=== PATIENT | male | born 1945 | race Caucasian/White ===

== ENCOUNTER → 2016-04-24 | Outpatient (CLI) | payer MEDICARE, OTHER | LOC: GMAL 14:54 | PROVIDERS: ATTEND Family Medicine | DX: E03.8 Other specified hypothyroidism (principal) ==

== ENCOUNTER 2016-06-29 23:38 | Emergency (ER) | payer MEDICARE, OTHER ==
[2016-06-29] MEDS ORDERED: IPRATROPIUM/ALBUTEROL 3 ML VIAL NEB ONE (23:54)
[2016-06-30 00:02] VITALS: TEMP 97.6
[2016-06-30] MEDS ORDERED: NITROGLYCERIN 0.4 MG 25 EA TAB SL ONE (00:03)
[2016-06-30] MEDS ORDERED: ASPIRIN TABLET 325 MG TAB PO ONE (00:03)
[2016-06-30] MEDS ORDERED: ONDANSETRON INJ 4 MG/2 ML VIAL IV ONE (00:03)
[2016-06-30] MEDS ORDERED: SODIUM CHLORIDE 0.9% (FLUSH) 10 ML SYG IV PRN (00:03)
[2016-06-30] MEDS ORDERED: IPRATROPIUM/ALBUTEROL 3 ML VIAL NEB ONE (00:05)
--- NOTE | 2016-06-30 00:23 | ED.PDOC ---
History of Present Illness - General Chief Complaint: Chest Pain/AR Stated Complaint: chest pain,shortness of breath Time Seen by Provider: 06/30/16 00:02 Source: patient, RN notes reviewed, Vital Signs reviewed Exam Limitations: no limitations - History of Present Illness Initial Comments: Patient is a 70 y/o male with a history of 2 MIs who woke up with chest pain about 2300. The pain was a pressure and a 10/10. He has shortness of breath. He denies any dizziness, nausea, palpitations, or diaphoresis. He has HTN, DM treated with insulin, CKD and CAD. He smokes about 1.5 PPD. He states that his blood pressure and diabetes are under good control. He sees his doctor about every 2 weeks. He has nitroglycerine, but did not take any. He has had chest congestion and cough over the past month which seems to be worsening. Of note, Patient takes pseudoephedrine daily for his nasal congestion. Timing/Duration: 1 hour Severity: severe Improving Factors: nothing Worsening Factors: nothing Associated Symptoms: chest pain, shortness of breath Allergies/Adverse Reactions: Allergies NO KNOWN ALLERGY Allergy (Verified 03/22/16 16:50) Home Medications: Ambulatory Orders Tytrcozdhw-Faazyrgxz-Oeavaifuj [Exforge Hct 10-160-25 mg] 0.5 tab PO BEDTIME Aspirin [Baby Aspirin] 81 mg PO BEDTIME 03/30/14 Atorvastatin Calcium [Lipitor] 40 mg PO BEDTIME 03/30/14 Carvedilol 3.125 mg PO BID 03/30/14 Furosemide [Lasix] 20 mg PO DAILY 03/30/14 Gabapentin [Neurontin] 100 mg PO DAILY 03/30/14 Glipizide [Glucotrol Xl] 10 mg PO BEDTIME 03/30/14 Liraglutide [Victoza] 1.2 mg SC DAILY 03/30/14 Tamsulosin HCl 0.4 mg PO DAILY 03/30/14 Insulin Glargine [Toujeo Solostar] 34 unit SC DAILY 03/22/16 Acetaminophen [Tylenol] 500 mg PO DAILY 06/30/16 Clopidogrel Bisulfate [Plavix] 75 mg PO QD 06/30/16 Docusate Sodium [Colace Cap] 100 mg PO BID 06/30/16 Gabapentin 300 mg PO BEDTIME 06/30/16 Levothyroxine Sodium 50 mcg PO DAILY 06/30/16 Pseudoephedrine HCl [Pseudoephedrine HCl ER] 180 mg PO BID 06/30/16 SITagliptin [Januvia] 50 mg PO DAILY 06/30/16 Valsartan [Diovan] 160 mg PO DAILY 06/30/16 Review of Systems - Review of Systems Constitutional: States: no symptoms reported EENTM: States: nose congestion Respiratory: States: cough, short of breath Cardiology: States: chest pain. Denies: palpitations Gastrointestinal/Abdominal: States: no symptoms reported. Denies: nausea Genitourinary: States: no symptoms reported Musculoskeletal: States: no symptoms reported Skin: States: no symptoms reported Neurological: States: no symptoms reported Endocrine: States: no symptoms reported Hematologic/Lymphatic: States: no symptoms reported Past Medical History (General) - Patient Medical History Hx Seizures: No Hx Stroke: No Hx Asthma: No Hx of COPD: No Hx Cardiac Disorders: Yes - hypercholesterolemia; PVD; [place] x 2 Hx Congestive Heart Failure: No Hx Pacemaker: No Hx Hypertension: Yes Hx Thyroid Disease: Yes Hx Diabetes: Yes Hx Renal Disease: Yes Hx Cancer: No Hx Hepatitis C: No Hx MRSA: No - Vaccination History Hx Influenza Vaccination: No Hx Pneumococcal Vaccination: Yes - Social History Hx Tobacco Use: Yes Hx Alcohol Use: No Hx Substance Use: No Hx Physical Abuse: No Hx Emotional Abuse: No Family Medical History - Family History Mother Family History: Unknown Living Status: Cause of : old age Father Family History: Unknown Living Status: Cause of : old age Physical Exam - Physical Exam General Appearance: Alert, Comfortable, No apparent distress Ears, Nose, Throat: hearing grossly normal, normal ENT inspection Respiratory: chest non-tender, lungs clear, normal breath sounds, no respiratory distress, no accessory muscle use Cardiovascular/Chest: regular rate, rhythm, no edema, no gallop, no murmur Gastrointestinal/Abdominal: normal bowel sounds, non tender, soft, no organomegaly Neurologic: alert, normal mood/affect, oriented x 3 Skin Exam: normal color, warm/dry Progress - Progress Progress: 06/30/16 01:30 By the time Patient was in a room, his chest pain had resolved. - Results/Orders Results/Orders: 06/29/16 06/29/16 06/30/16 23:50 23:58 00:00 Temperature 97.6 F Pulse Rate 78 Pulse Rate [ 61 Left Brachial] Respiratory 20 20 Rate Blood Pressure 158/72 [Left Arm] O2 Sat by Pulse 86 L 85 L 91 L Oximetry 06/30/16 06/30/16 00:14 01:03 Temperature Pulse Rate Pulse Rate [ 77 Left Brachial] Respiratory 20 20 Rate Blood Pressure 153/71 [Left Arm] O2 Sat by Pulse 94 L Oximetry 06/30/16 00:03 Telemetry .ONCE Sodium Chloride 0.9% (Flush) [Saline Flush Syringe] 10 ml IV PRN PRN EKG Stat Pulse Ox Stat 06/30/16 00:04 EKG Assessment ONCE Pulse Oximetry Assessment DAILY Laboratory Results WBC 8.1 K/mm3 (4.8-10.8) 06/29/16 23:55 RBC 4.43 M/mm3 (4.70-6.10) L 06/29/16 23:55 Hgb 12.8 gm/dL (14.0-18.0) L 06/29/16 23:55 Hct 37.9 % (42.0-52.0) L 06/29/16 23:55 MCV 85.4 fl (80.0-94.0) 06/29/16 23:55 MCH 28.8 pg (27.0-31.0) 06/29/16 23:55 MCHC 33.9 g/dL (33.0-37.0) 06/29/16 23:55 RDW 14.3 % (11.5-14.5) 06/29/16 23:55 Plt Count 204 K/mm3 (130-400) 06/29/16 23:55 MPV 8.6 fl (7.40-10.4) 06/29/16 23:55 Absolute Neuts (auto) 4.70 K/uL (1.8-6.8) 06/29/16 23:55 Absolute Lymphs (auto) 2.30 K/uL (1.0-3.4) 06/29/16 23:55 Absolute Monos (auto) 0.70 K/uL (0.2-0.8) 06/29/16 23:55 Absolute Eos (auto) 0.40 K/uL (0.0-0.4) 06/29/16 23:55 Absolute Basos (auto) 0.10 K/uL (0.0-0.1) 06/29/16 23:55 Neutrophils % 58.1 % (42.0-78.0) 06/29/16 23:55 Lymphocytes % 28.1 % (20.0-50.0) 06/29/16 23:55 Monocytes % 8.0 % (2.0-9.0) 06/29/16 23:55 Eosinophils % 5.0 % (1.0-5.0) 06/29/16 23:55 Basophils % 0.8 % (0.0-2.0) 06/29/16 23:55 PT 10.8 SECONDS (9.4-12.5) 06/29/16 23:55 INR 0.960 06/29/16 23:55 PTT (SP) 28.8 SECONDS (25.1-36.5) 06/29/16 23:55 D-Dimer, Quantitative 233 ng/mL (0-230) H* 06/29/16 23:55 Sodium 138 mmol/L (135-145) 06/29/16 23:55 Potassium 4.4 mmol/L (3.6-5.0) 06/29/16 23:55 Chloride 105 mmol/L (101-111) 06/29/16 23:55 Carbon Dioxide 27 mmol/L (21-31) 06/29/16 23:55 Anion Gap 10.4 (12-18) L 06/29/16 23:55 BUN 38 mg/dL (7-18) H 06/29/16 23:55 Creatinine 1.66 mg/dL (0.6-1.3) H 06/29/16 23:55 BUN/Creatinine Ratio 22.9 (10-20) H 06/29/16 23:55 Random Glucose 309 mg/dL (70-105) H 06/29/16 23:55 Serum Osmolality 296.4 mOsm/L (275-295) H 06/29/16 23:55 Calcium 9.3 mg/dL (8.4-10.2) 06/29/16 23:55 Magnesium 1.9 mg/dL (1.8-2.5) 06/29/16 23:55 Total Bilirubin 0.4 mg/dL (0.2-1.0) 06/29/16 23:55 Direct Bilirubin < 0.1 mg/dL (0-0.2) 06/29/16 23:55 Indirect Bilirubin 0.3 mg/dL (0.2-0.8) 06/29/16 23:55 AST 19 IU/L (10-42) 06/29/16 23:55 ALT 17 IU/L (10-60) 06/29/16 23:55 Alkaline Phosphatase 51 IU/L (42-121) 06/29/16 23:55 Creatine Kinase 229 IU/L (38-174) H* 06/29/16 23:55 CK-MB (CK-2) 7.2 ng/mL (0.0-4.4) H* 06/29/16 23:55 CK-MB (CK-2) % 3.14 % (0.0-3.5) 06/29/16 23:55 Troponin I 0.08 ng/mL (0.01-0.05) H* 06/29/16 23:55 B-Natriuretic Peptide 236.0 pg/ml (0-100) H* 06/29/16 23:55 Serum Total Protein 7.0 gm/dL (6.4-8.2) 06/29/16 23:55 Albumin 3.9 g/dl (3.2-5.5) 06/29/16 23:55 - EKG/XRAY/CT EKG: Sinus - 82 bpm, nonspecific ST T wave Chg - T-wave inversion in I, V5, V6, Changed from - 12/12/2014-No T-wave inversion, + PVCs Comments: NML axis, Normal intervals - Abnormal EKG XRAY: chest Xray Comments: No acute process Departure - Departure Clinical Impression: Non-STEMI (non-ST elevated myocardial infarction) DMII (diabetes mellitus, type 2) Qualifiers: Diabetes mellitus complication status: with kidney complications Diabetes mellitus complication detail: with chronic kidney disease Chronic kidney disease stage: stage 3 (moderate) Qualifier Code: (E11.22) Type 2 diabetes mellitus with diabetic chronic kidney disease Chronic kidney disease Qualifiers: Chronic kidney disease stage: stage 3 (moderate) Qualifier Code: (N18.3) Chronic kidney disease, stage 3 (moderate) Coronary artery disease Qualifiers: Coronary Disease-Associated Artery/Lesion type: unspecified vessel or lesion type [place] vs. 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 Copy, Patient Portal Self Enrollment Referrals: Matt Branch III, MD [Primary Care Provider] - 1-2 Weeks Home Medications: Ambulatory Orders Pijnlqomhx-Zxvihrrpl-Gdvuscmty [Exforge Hct 10-160-25 mg] 0.5 tab PO BEDTIME Aspirin [Baby Aspirin] 81 mg PO BEDTIME 03/30/14 Atorvastatin Calcium [Lipitor] 40 mg PO BEDTIME 03/30/14 Carvedilol 3.125 mg PO BID 03/30/14 Furosemide [Lasix] 20 mg PO DAILY 03/30/14 Gabapentin [Neurontin] 100 mg PO DAILY 03/30/14 Glipizide [Glucotrol Xl] 10 mg PO BEDTIME 03/30/14 Liraglutide [Victoza] 1.2 mg SC DAILY 03/30/14 Tamsulosin HCl 0.4 mg PO DAILY 03/30/14 Insulin Glargine [Toujeo Solostar] 34 unit SC DAILY 03/22/16 Acetaminophen [Tylenol] 500 mg PO DAILY 06/30/16 Clopidogrel Bisulfate [Plavix] 75 mg PO QD 06/30/16 Docusate Sodium [Colace Cap] 100 mg PO BID 06/30/16 Gabapentin 300 mg PO BEDTIME 06/30/16 Levothyroxine Sodium 50 mcg PO DAILY 06/30/16 Pseudoephedrine HCl [Pseudoephedrine HCl ER] 180 mg PO BID 06/30/16 SITagliptin [Januvia] 50 mg PO DAILY 06/30/16 Valsartan [Diovan] 160 mg PO DAILY 06/30/16 Transfer to Outside Facility - Transfer Information Accepting Provider:: Dr. Elsy Rothman Accepting Facility: [facility] Reason for Transfer: required specialist not available
--- NOTE | 2016-06-30 00:35 | RAD ---
Clinical History : chest pain , MAIN Exam : Portable AP view of the chest 06/30/2016 12:03 AM CDT Comparisons : PA and lateral views of the chest March 22, 2016 Findings : The lungs are clear without focal consolidation or pleural effusion. The heart is normal in size. The mediastinal contours are normal in appearance. There are vascular calcifications along the aortic arch. The thoracic spine is age appropriate. The shoulders are unremarkable. Limited evaluation of the upper abdomen demonstrates no gross abnormalities. Impression: No acute cardiopulmonary disease (stable appearing chest). Electronically signed by: Ivone Gilmore MD 06/30/2016 12:34 AM CDT
[2016-06-30] MEDS ORDERED: METOPROLOL TARTRATE INJ 5 MG/5 ML VIAL IV ONE ×3 (01:16→02:01)
[2016-06-30] MEDS ORDERED: HEPARIN PREMIX 500 ML IV SCH (01:22)
[2016-06-30] MEDS ORDERED: HEPARIN SODIUM (PORCINE) 5,000 U/ML VIAL IV ONE (01:27)
[2016-06-30 02:29] VITALS: BP 158/72; O2SAT 95
== END 2016-06-30 02:39 | disposition short-term general hospital (02) ==
LOC: ER 23:38
DX: I21.4 Non-ST elevation (NSTEMI) myocardial infarction (principal); E11.22 Type 2 diabetes mellitus with diabetic chronic kidney disease; I12.9 Hypertensive chronic kidney disease with stage 1 through stage 4 chronic kidney disease, or unspecified chronic kidney disease; N18.3 Chronic kidney disease, stage 3 (moderate); I25.10 Atherosclerotic heart disease of native coronary artery without angina pectoris; I25.2 Old myocardial infarction; E78.00 Pure hypercholesterolemia, unspecified; Z79.899 Other long term (current) drug therapy; Z79.82 Long term (current) use of aspirin; Z79.02 Long term (current) use of antithrombotics/antiplatelets; Z79.4 Long term (current) use of insulin; Z87.891 Personal history of nicotine dependence
CPT/HCPCS: 71010; 80048; 80076; 82550; 82553; 83880; 84484; 85025; 85379; 85610; 85730; 93005; 94640; 94760; J1644; J7620

== ENCOUNTER → 2016-07-23 | Outpatient (CLI) | payer MEDICARE, OTHER | END | disposition home or self-care (01) | LOC: GMAL 12:04 | PROVIDERS: ATTEND Family Medicine | DX: E55.9 Vitamin D deficiency, unspecified (principal); M10.9 Gout, unspecified ==

== ENCOUNTER → 2016-07-24 | Outpatient (CLI) | payer MEDICARE, OTHER | LOC: GMAL 10:38 | PROVIDERS: ATTEND Family Medicine | DX: R39.15 Urgency of urination (principal) ==

== ENCOUNTER → 2016-07-30 | Outpatient (CLI) | payer MEDICARE, OTHER | END | disposition home or self-care (01) | LOC: GMAL 10:14 | PROVIDERS: ATTEND Family Medicine | DX: I50.9 Heart failure, unspecified (principal); R31.9 Hematuria, unspecified ==

== ENCOUNTER → 2016-08-01 | Outpatient (CLI) | payer MEDICARE, OTHER | LOC: LAB.O 16:43 | PROVIDERS: ATTEND Family Medicine | DX: I10 Essential (primary) hypertension (principal); I50.9 Heart failure, unspecified ==

== ENCOUNTER → 2016-11-13 | Outpatient (CLI) | payer MEDICARE, OTHER | END | disposition home or self-care (01) | LOC: GMAL 11:43 | PROVIDERS: ATTEND Family Medicine | DX: R31.0 Gross hematuria (principal) ==

== ENCOUNTER → 2016-11-19 | Outpatient (CLI) | payer MEDICARE, OTHER | END | disposition home or self-care (01) | LOC: GMAL 10:58 | PROVIDERS: ATTEND Family Medicine | DX: D51.3 Other dietary vitamin B12 deficiency anemia (principal); D53.9 Nutritional anemia, unspecified; E55.9 Vitamin D deficiency, unspecified ==

== ENCOUNTER 2016-12-18 20:14 | Emergency (ER) | payer MEDICARE, OTHER ==
[2016-12-18 20:28] VITALS: TEMP 98
--- NOTE | 2016-12-18 21:56 | ED.PDOC ---
History of Present Illness - General Chief Complaint: Blood Pressure Problem Stated Complaint: high B/P Time Seen by Provider: 12/18/16 20:14 Source: patient Exam Limitations: no limitations - History of Present Illness Initial Comments: the patient is a 71-year-old male brought in with his secondary to concern over his elevated blood pressure and the fact that he had had 2 previous almost silent myocardial infarctions in the past. He does have some known chronic renal insufficiency and recently had his blood pressure medications and diuretic reduced. The patient has noted some increased swelling in his extremities as well as some increased dyspnea on exertion. No orthopnea or paroxysmal nocturnal dyspnea. No fevers. No chest pain. No shortness of breath at rest. He also noted today that his blood pressures were climbing up higher than they normally work. His recent medication changes were done approximately one to 2 weeks ago. He had been having some mildly low blood pressures which was also the reason for change. Timing/Duration: unsure Severity: mild Improving Factors: nothing Worsening Factors: nothing Associated Symptoms: denies symptoms Allergies/Adverse Reactions: Allergies NO KNOWN ALLERGY Allergy (Verified 12/18/16 20:28) Home Medications: Ambulatory Orders Vezaetgugl-Migotptgt-Daewefcvz [Exforge Hct 10-160-25 mg] 0.5 tab PO BEDTIME Aspirin [Baby Aspirin] 81 mg PO BEDTIME 03/30/14 Atorvastatin Calcium [Lipitor] 40 mg PO BEDTIME 03/30/14 Carvedilol 3.125 mg PO BID 03/30/14 Furosemide [Lasix] 20 mg PO DAILY 03/30/14 Gabapentin [Neurontin] 100 mg PO DAILY 03/30/14 Glipizide [Glucotrol Xl] 10 mg PO BEDTIME 03/30/14 Liraglutide [Victoza] 1.2 mg SC DAILY 03/30/14 Tamsulosin HCl 0.4 mg PO DAILY 03/30/14 Insulin Glargine [Toujeo Solostar] 34 unit SC DAILY 03/22/16 Acetaminophen [Tylenol] 500 mg PO DAILY 06/30/16 Clopidogrel Bisulfate [Plavix] 75 mg PO QD 06/30/16 Docusate Sodium [Colace Cap] 100 mg PO BID 06/30/16 Gabapentin 300 mg PO BEDTIME 06/30/16 Levothyroxine Sodium 50 mcg PO DAILY 06/30/16 Pseudoephedrine HCl [Pseudoephedrine HCl ER] 180 mg PO BID 06/30/16 SITagliptin [Januvia] 50 mg PO DAILY 06/30/16 Valsartan [Diovan] 160 mg PO DAILY 06/30/16 Review of Systems - Review of Systems Constitutional: States: malaise EENTM: States: no symptoms reported Respiratory: States: no symptoms reported Cardiology: States: edema Gastrointestinal/Abdominal: States: no symptoms reported Genitourinary: States: no symptoms reported Musculoskeletal: States: no symptoms reported Skin: States: no symptoms reported Neurological: States: no symptoms reported Endocrine: States: no symptoms reported All other Systems: No Change from Baseline Past Medical History (General) - Patient Medical History Hx Seizures: No Hx Stroke: No Hx Dementia: No Hx Asthma: No Hx of COPD: No Hx Cardiac Disorders: Yes - hypercholesterolemia; PVD; [place] x 2 Hx Congestive Heart Failure: No Hx Pacemaker: No Hx Hypertension: Yes Hx Thyroid Disease: Yes Hx Diabetes: Yes Hx Gastroesophageal Reflux: No Hx Renal Disease: No Hx Cancer: No Hx of HIV: No Hx Hepatitis C: No Hx MRSA: No - Vaccination History Hx Tetanus, Diphtheria Vaccination: Yes Hx Influenza Vaccination: No Hx Pneumococcal Vaccination: Yes - Social History Hx Tobacco Use: Yes Hx Chewing Tobacco Use: No Hx Alcohol Use: No Hx Substance Use: No Feels Threatened In Home Enviroment: No Feels Threatened In a Relationship: No Hx Physical Abuse: No Hx Emotional Abuse: No Hx Suspected Abuse: No Family Medical History - Family History Mother Family History: Unknown Living Status: Cause of : old age Father Family History: Unknown Living Status: Cause of : old age Physical Exam - Physical Exam General Appearance: Alert, Comfortable, No apparent distress Eye Exam: bilateral normal Ears, Nose, Throat: hearing grossly normal, normal ENT inspection, normal pharynx Neck: non-tender, full range of motion Respiratory: lungs clear, normal breath sounds, no respiratory distress, no accessory muscle use Cardiovascular/Chest: normal peripheral pulses, regular rate, rhythm Peripheral Pulses: radial,right: 2+, radial,left: 2+, dorsalis pedis,right: 2+, dorsalis pedis,left: 2+ Gastrointestinal/Abdominal: non tender, soft Rectal Exam: deferred Back Exam: normal inspection Extremity: normal range of motion, non-tender, normal capillary refill, pedal edema - +1 bilaterally Neurologic: travel registered nurse icu II-XII nml as tested, alert, normal mood/affect, oriented x 3 Skin Exam: normal color Comments: Vital Signs - 24 hr 12/18/16 12/18/16 20:20 21:14 Temperature 98.0 F Pulse Rate [ 80 77 monitor] Respiratory 18 Rate Blood Pressure 161/78 182/75 [Left Arm] O2 Sat by Pulse 94 L Oximetry Progress - Progress Progress: 12/18/16 21:56 the patient is a 71-year-old male presenting secondary to concern over his elevated blood pressure. He does appear to be having a very mild CHF exacerbation likely related to recent changes in his blood pressure and diuretic medications. He is to double up on his diuretic tomorrow and Friday. He needs to discuss with his primary care doctor possibly inching back up his blood pressure medications. His creatinine has improved from the last check here. There is no elevation in his troponin. He does need to follow his blood pressures closely over the next week to make sure that the level back out. ER warnings are given for any significant worsening. - Results/Orders Results/Orders: Laboratory Tests 12/18/16 12/18/16 20:48 20:48 WBC 8.5 RBC 4.09 L Hgb 12.0 L Hct 34.8 L MCV 85.1 MCH 29.3 MCHC 34.5 RDW 14.1 Plt Count 198 MPV 8.0 Absolute Neuts (auto) 5.50 Absolute Lymphs (auto) 1.80 Absolute Monos (auto) 0.60 Absolute Eos (auto) 0.50 H Absolute Basos (auto) 0.10 Neutrophils % 64.5 Lymphocytes % 20.8 Monocytes % 7.6 Eosinophils % 6.1 H Basophils % 1.0 Sodium 135 Potassium 4.6 Chloride 103 Carbon Dioxide 25 Anion Gap 11.6 L BUN 37 H Creatinine 1.62 H BUN/Creatinine Ratio 22.8 H Random Glucose 199 H Serum Osmolality 284.4 Calcium 9.5 Total Bilirubin 0.5 AST 22 ALT 17 Alkaline Phosphatase 53 Creatine Kinase 220 H* CK-MB (CK-2) 6.7 H* CK-MB (CK-2) % 3.05 Troponin I 0.05 B-Natriuretic Peptide 401.0 H* Serum Total Protein 7.4 Albumin 4.1 Globulin 3.3 Albumin/Globulin Ratio 1.2 Departure - Departure Clinical Impression: Uncontrolled hypertension Acute exacerbation of CHF (congestive heart failure) Qualifiers: Congestive heart failure type: unspecified congestive heart failure type Qualified Code(s): I50.9 - Heart failure, unspecified Disposition: Discharge to Home or Self Care Condition: Fair Departure Forms: ED Discharge - Pt. Copy, Patient Portal Self Enrollment Instructions: DI for High Blood Pressure Diet: diabetic diet, low salt diet Activity: increase activity as tolerated Referrals: Matt Branch III, MD [Primary Care Provider] - 1-5 Days Home Medications: Ambulatory Orders Nmtrymilpo-Zejvdqjxd-Otljmfsdi [Exforge Hct 10-160-25 mg] 0.5 tab PO BEDTIME Aspirin [Baby Aspirin] 81 mg PO BEDTIME 03/30/14 Atorvastatin Calcium [Lipitor] 40 mg PO BEDTIME 03/30/14 Carvedilol 3.125 mg PO BID 03/30/14 Furosemide [Lasix] 20 mg PO DAILY 03/30/14 Gabapentin [Neurontin] 100 mg PO DAILY 03/30/14 Glipizide [Glucotrol Xl] 10 mg PO BEDTIME 03/30/14 Liraglutide [Victoza] 1.2 mg SC DAILY 03/30/14 Tamsulosin HCl 0.4 mg PO DAILY 03/30/14 Insulin Glargine [Toujeo Solostar] 34 unit SC DAILY 03/22/16 Acetaminophen [Tylenol] 500 mg PO DAILY 06/30/16 Clopidogrel Bisulfate [Plavix] 75 mg PO QD 06/30/16 Docusate Sodium [Colace Cap] 100 mg PO BID 06/30/16 Gabapentin 300 mg PO BEDTIME 06/30/16 Levothyroxine Sodium 50 mcg PO DAILY 06/30/16 Pseudoephedrine HCl [Pseudoephedrine HCl ER] 180 mg PO BID 06/30/16 SITagliptin [Januvia] 50 mg PO DAILY 06/30/16 Valsartan [Diovan] 160 mg PO DAILY 06/30/16 Additional Instructions: the patient is a 71-year-old male presenting secondary to concern over his elevated blood pressure. He does appear to be having a very mild CHF exacerbation likely related to recent changes in his blood pressure and diuretic medications. He is to double up on his diuretic tomorrow and Friday. He needs to discuss with his primary care doctor possibly inching back up his blood pressure medications. His creatinine has improved from the last check here. There is no elevation in his troponin. He does need to follow his blood pressures closely over the next week to make sure that the level back out. ER warnings are given for any significant worsening.
[2016-12-18 22:18] VITALS: BP 190/80; O2SAT 92
== END 2016-12-18 22:18 | disposition home or self-care (01) ==
LOC: ER 20:14
DX: I11.0 Hypertensive heart disease with heart failure (principal); I50.9 Heart failure, unspecified; E78.00 Pure hypercholesterolemia, unspecified; I25.2 Old myocardial infarction; Z79.4 Long term (current) use of insulin; Z79.899 Other long term (current) drug therapy; Z79.02 Long term (current) use of antithrombotics/antiplatelets; Z79.82 Long term (current) use of aspirin

== ENCOUNTER → 2016-12-25 | Outpatient (CLI) | payer MEDICARE, OTHER | END | disposition home or self-care (01) | LOC: GMAL 15:20 | PROVIDERS: ATTEND Family Medicine | DX: E83.42 Hypomagnesemia (principal) ==

== ENCOUNTER 2017-01-26 07:05 | Emergency (ER) | payer MEDICARE, OTHER ==
--- NOTE | 2017-01-26 07:32 | ED.PDOC ---
History of Present Illness - General Chief Complaint: General Stated Complaint: Difficulty swallowing pills Time Seen by Provider: 01/26/17 07:20 Source: patient, RN notes reviewed, Vital Signs reviewed, family - Exam Limitations: no limitations - History of Present Illness Initial Comments: Patient comes to ER with c/o difficulty swallowing intermittently for the past 2 weeks. Initially started with the feeling of his throat swelling about 4 days after starting a new diabetic medication. His doctor had him stop the medication and things seemed to improved. He noted 2 nights ago he had difficulty swallowing his evening pills. Same symptoms last night. Denies difficulty swallowing food or liquids, just his medication. + Hx of reflux X ~ 15 years. Takes Rolaids but has never been seen for this nor has he had an EGD. Timing/Duration: intermittent Severity: moderate Improving Factors: nothing Worsening Factors: other - swallowing medications. Associated Symptoms: denies symptoms Allergies/Adverse Reactions: Allergies NO KNOWN ALLERGY Allergy (Verified 01/26/17 07:26) Home Medications: Ambulatory Orders Aspirin [Baby Aspirin] 81 mg PO BEDTIME 03/30/14 Carvedilol 3.125 mg PO BID 03/30/14 Furosemide [Lasix] 40 mg PO DAILY 03/30/14 Gabapentin [Neurontin] 300 mg PO DAILY 03/30/14 Liraglutide [Victoza] 1.2 mg SC DAILY 03/30/14 Tamsulosin HCl 0.4 mg PO DAILY 03/30/14 Acetaminophen [Tylenol] 500 mg PO DAILY 06/30/16 Clopidogrel Bisulfate [Plavix] 75 mg PO QD 06/30/16 Docusate Sodium [Colace Cap] 100 mg PO BID 06/30/16 Gabapentin 900 mg PO BEDTIME 06/30/16 Pseudoephedrine HCl [Pseudoephedrine HCl ER] 180 mg PO BID 06/30/16 Allopurinol [Zyloprim] 100 mg PO DAILY 01/26/17 Qxkyjczlld-Fenhqlgpg-Ussigcdha [Exforge Hct 5-160-25 mg] 1 tab PO BID 01/26/17 Insulin Regular (Human) [Humulin R] 0 unit IJ QID PRN 01/26/17 Linaclotide [Linzess] 145 mcg PO DAILY PRN 01/26/17 Pantoprazole Tablet [Protonix] 40 mg PO BID #60 tab 01/26/17 Review of Systems - Review of Systems Constitutional: States: no symptoms reported EENTM: States: no symptoms reported Respiratory: States: cough, wheezing - noticed last night while he could not sleep. Denies: short of breath Cardiology: States: no symptoms reported Gastrointestinal/Abdominal: States: see HPI. Denies: abdominal pain, nausea, vomiting Musculoskeletal: States: no symptoms reported Skin: States: no symptoms reported Neurological: States: no symptoms reported All other Systems: No Change from Baseline Past Medical History (General) - Patient Medical History Hx Seizures: No Hx Stroke: No Hx Dementia: No Hx Asthma: No Hx of COPD: No Hx Cardiac Disorders: Yes - hypercholesterolemia; PVD; SD x 2 Hx Congestive Heart Failure: Yes Hx Pacemaker: No Hx Hypertension: Yes Hx Thyroid Disease: Yes Hx Diabetes: Yes Hx Gastroesophageal Reflux: No Hx Renal Disease: No Hx Cancer: No Hx of HIV: No Hx Hepatitis C: No Hx MRSA: No Surgical History: tonsillectomy, other - Vaccination History Hx Tetanus, Diphtheria Vaccination: Yes Hx Influenza Vaccination: No Hx Pneumococcal Vaccination: Yes - 2017 - Social History Hx Tobacco Use: Yes Hx Chewing Tobacco Use: No Hx Alcohol Use: No Hx Substance Use: No Hx Physical Abuse: No Hx Emotional Abuse: No Hx Suspected Abuse: No Family Medical History - Family History Mother Family History: Unknown Living Status: Cause of : old age Father Family History: Unknown Living Status: Cause of : old age Physical Exam - Physical Exam General Appearance: Alert, Comfortable, No apparent distress, Well Developed, Well Groomed, Well Hydrated, Well Nourished Ears, Nose, Throat: hearing grossly normal Neck: non-tender, supple, normal inspection Respiratory: lungs clear, normal breath sounds, no respiratory distress, no accessory muscle use Cardiovascular/Chest: regular rate, rhythm, no gallop, no JVD, no murmur Extremity: normal range of motion, normal inspection Neurologic: alert, normal mood/affect, oriented x 3 Skin Exam: normal color, warm/dry Comments: Vital Signs 01/26/17 07:11 Temperature 97.6 F Pulse Rate [ 83 Left Radial] Respiratory 20 Rate Blood Pressure 183/80 [Left Arm] O2 Sat by Pulse 97 Oximetry Progress - Progress Progress: 01/26/17 08:16 Discussed X-ray results with patient and . Symptoms most likely related to chronic reflux. Will start Protonix 40mg twice daily and have his follow up with [facility] for and EGD Advised no caffeine, carbonated drinks, citrus, alcohol or chocolate Also, sleep with head slightly elevated. - EKG/XRAY/CT XRAY: Neck: no obstruction other than large tongue per Radiologist - No acute findings per Radiologist Departure - Departure Clinical Impression: Gastroesophageal reflux Qualifiers: Esophagitis presence: esophagitis presence not specified Qualified Code(s): K21.9 - Gastro-esophageal reflux disease without esophagitis Dysphagia Qualifiers: Dysphagia type: pharyngoesophageal phase Qualified Code(s): R13.14 - Dysphagia , pharyngoesophageal phase Time of Disposition: 08:19 Disposition: Discharge to Home or Self Care Condition: Good Departure Forms: ED Discharge - Pt. Copy, Patient Portal Self Enrollment Instructions: DI for Esophageal Dysphagia, DI for Gastroesophageal Reflux Disease (GERD) Diet: resume usual diet - except with limitations listed below Activity: increase activity as tolerated Referrals: Matt Branch III, MD [Primary Care Provider] - 1-2 Weeks Tim Peters MD [Consulting Staff] - 1-2 Weeks Prescriptions: Pantoprazole Tablet [Protonix] 40 mg PO BID #60 tab Home Medications: Ambulatory Orders Aspirin [Baby Aspirin] 81 mg PO BEDTIME 03/30/14 Carvedilol 3.125 mg PO BID 03/30/14 Furosemide [Lasix] 40 mg PO DAILY 03/30/14 Gabapentin [Neurontin] 300 mg PO DAILY 03/30/14 Liraglutide [Victoza] 1.2 mg SC DAILY 03/30/14 Tamsulosin HCl 0.4 mg PO DAILY 03/30/14 Acetaminophen [Tylenol] 500 mg PO DAILY 06/30/16 Clopidogrel Bisulfate [Plavix] 75 mg PO QD 06/30/16 Docusate Sodium [Colace Cap] 100 mg PO BID 06/30/16 Gabapentin 900 mg PO BEDTIME 06/30/16 Pseudoephedrine HCl [Pseudoephedrine HCl ER] 180 mg PO BID 06/30/16 Allopurinol [Zyloprim] 100 mg PO DAILY 01/26/17 Vnkhonlgis-Rbzwzcsre-Wmknozdzx [Exforge Hct 5-160-25 mg] 1 tab PO BID 01/26/17 Insulin Regular (Human) [Humulin R] 0 unit IJ QID PRN 01/26/17 Linaclotide [Linzess] 145 mcg PO DAILY PRN 01/26/17 Pantoprazole Tablet [Protonix] 40 mg PO BID #60 tab 01/26/17 Additional Instructions: Will start Protonix 40mg twice daily and have his follow up with [facility] for and EGD Advised no caffeine, carbonated drinks, citrus, alcohol or chocolate Also, sleep with head slightly elevated.
[2017-01-26 07:36] VITALS: TEMP 97.6
--- NOTE | 2017-01-26 08:04 | RAD ---
Clinical History : difficulty swallowing , MAIN Exam : PA and lateral views of the chest 01/26/2017 7:27 AM CDT Comparisons : none Findings : The lungs are clear without focal consolidation or pleural effusion. The heart is normal in size. The mediastinal contours are normal in appearance. There are vascular calcifications along the aortic arch. The thoracic spine is age appropriate. The shoulders are unremarkable. Limited evaluation of the upper abdomen demonstrates no gross abnormalities. Impression: No acute cardiopulmonary disease Electronically signed by: Ivone Gilmore MD 01/26/2017 8:02 AM CDT
--- NOTE | 2017-01-26 08:11 | RAD ---
EXAM DESCRIPTION: Neck,Soft Tissue CLINICAL HISTORY: 71 years, Male, difficulty swallowing COMPARISON: Chest x-ray from today FINDINGS: Two views of the neck soft tissues were performed. The nasal canal and nasopharynx are patent. The oropharynx is patent but there is some mass effect anteriorly from a large tongue. Patent vallecula and piriform sinuses. Unremarkable epiglottis. Unremarkable larynx and upper trachea. There is no prevertebral soft tissue swelling. Degenerative changes involve the cervical spine are associated with minimal listheses. There has been previous fusion of C7-T1. No suspicious radiopaque foreign body is identified. Some LEFT neck calcification is likely vascular in etiology. IMPRESSION: Patent central airway with mass effect on the anterior oropharynx from a large tongue. No radiopaque foreign body. Electronically signed by: Glenys Sharif MD 01/26/2017 8:10 AM CDT
[2017-01-26] MEDS ORDERED: PANTOPRAZOLE SODIUM TAB 40 MG PO ONE (08:15)
[2017-01-26 08:24] VITALS: BP 175/82; O2SAT 98
== END 2017-01-26 08:29 | disposition home or self-care (01) ==
LOC: ER 07:05
DX: K21.9 Gastro-esophageal reflux disease without esophagitis (principal); R13.14 Dysphagia, pharyngoesophageal phase; Z87.891 Personal history of nicotine dependence; E78.00 Pure hypercholesterolemia, unspecified; I25.2 Old myocardial infarction; I11.0 Hypertensive heart disease with heart failure; I50.9 Heart failure, unspecified; E11.9 Type 2 diabetes mellitus without complications; Z79.02 Long term (current) use of antithrombotics/antiplatelets; Z79.4 Long term (current) use of insulin; Z79.899 Other long term (current) drug therapy

== ENCOUNTER → 2017-02-05 | Outpatient (CLI) | payer MEDICARE, OTHER ==
--- NOTE | 2017-02-06 08:05 | US ---
EXAM DESCRIPTION: Extremity,Upper [place] Arteries: ULTRASOUND. CLINICAL HISTORY: ATHEROSCLEROSIS OF [place] ARTERIES OF EXTREMITIES COMPARISON: None Available. TECHNIQUE: Two -dimensional and doppler sonographic evaluation of the arterial system of the bilateral upper 70s. FINDINGS: Right upper extremity arterial waveforms: Triphasic in the right subclavian artery. Biphasic in the right axillary artery brachial artery and radial and ulnar arteries. Left upper extremity arterial waveforms: Biphasic from the left subclavian artery to the left ulnar artery. Comments: Peak systolic velocities are symmetric bilaterally. IMPRESSION: Duplex ultrasound evaluation of the bilateral upper extremity arterial systems showing no evidence of significant atherosclerotic occlusive disease . Electronically signed by: Bert Cruz MD 02/06/2017 8:04 AM CDT
--- NOTE | 2017-02-06 08:22 | US ---
EXAM DESCRIPTION: Renal Arteries: ULTRASOUND. CLINICAL HISTORY: ESSENTIAL PRIMARY HYPERTENSION COMPARISON: Doppler ultrasound of the bilateral upper extremity arterial systems on the same visit. TECHNIQUE: Transcutaneous scanning: Two-dimensional modes. Doppler systolic and diastolic measurements of the abdominal aorta, renal arteries, intra renal arteries, and renal veins. FINDINGS: PSV (cm/sec): Aorta: 80.0 Right renal artery: 104.8 Left renal artery: 60.9 EDV (cm/sec): Right renal artery: Approximately 15. Left renal artery: Approximately 15. Renal veins: Utilized. IVC: Visualized. Intrarenal RI's: Not measured. Renal Aortic Ratio: Right RAR = RRA PSV/Aortic PSV = 104.8 /80= 1.3. Left RAR = LRA PSV/Aortic PSV = 60.9/80 = 0.8. End Diastolic Ratio: Right EDR = RRA EDV/RRA PSV = 15/104.8 = 0.14. Left EDR = LRA EDV/LRA PSV = 15/61= 0.245. Other: Bilateral renal cortices appear slightly echogenic. IMPRESSION: 1. Bilateral renal aortic ratios indicate no significant stenosis of the renal arteries. 2. Bilateral end diastolic ratios indicate significant bilateral renal vascular parenchymal disease. Note: RI values were not measured. Electronically signed by: Bert Cruz MD 02/06/2017 8:21 AM CDT
== END | disposition home or self-care (01) ==
LOC: US 09:29
PROVIDERS: ATTEND Family Medicine
DX: I70.209 Unspecified atherosclerosis of native arteries of extremities, unspecified extremity (principal); I10 Essential (primary) hypertension

== ENCOUNTER 2017-02-09 22:36 | Emergency (ER) | payer MEDICARE, OTHER ==
[2017-02-09 22:53] VITALS: TEMP 97.2
[2017-02-09] MEDS ORDERED: ALBUTEROL SULFATE 2.5 MG/3 ML VIAL NEB ONE (22:53)
--- NOTE | 2017-02-09 22:56 | RAD ---
Examination: XR CHEST 1 VIEW dated 02/09/2017 10:44 PM CDT History: Chest pain/SOB Comparison: 01/26/2017 Technique: Frontal view of the chest Findings: Patchy bilateral lobe airspace opacities. No pneumothorax or pleural effusion. Aortic atherosclerosis. Normal cardiac silhouette. Impression: Patchy bilateral lower lobe airspace opacities may be seen with pneumonia, aspiration, or atelectasis. Electronically signed by: Cristobal Moe MD 02/09/2017 10:54 PM CDT
--- NOTE | 2017-02-09 22:56 | ED.PDOC ---
History of Present Illness - General Chief Complaint: Respiratory Problem Stated Complaint: SOB Time Seen by Provider: 02/09/17 22:37 Source: patient, RN notes reviewed, Vital Signs reviewed Exam Limitations: no limitations - History of Present Illness Initial Comments: Patient reports ~30 minutes prior to arrival he developed some chest pain and SOB. Reports he got up from the recliner to go to the bathroom. His L arm started hurting and while in bathroom he developed a pain between his shoulder blades. He made it back to the recliner but became progressively more SOB and developed some chest heaviness. He took SLNTG X2 on the way to ER and is chest pain free but still very SOB. Timing/Duration: 1/2 hour Severity: severe Activities at Onset: activity - Up walking to restroom Possible Cause: occasional episodes - LA X2 in past Improving Factors: nothing Worsening Factors: nothing Associated Symptoms: chest pain Respiratory Risk Factors: no cause identified Allergies/Adverse Reactions: Allergies NO KNOWN ALLERGY Allergy (Verified 02/09/17 22:53) Home Medications: Ambulatory Orders Aspirin [Baby Aspirin] 81 mg PO BEDTIME 03/30/14 Carvedilol 3.125 mg PO BID 03/30/14 Furosemide [Lasix] 40 mg PO DAILY 03/30/14 Gabapentin [Neurontin] 300 mg PO DAILY 03/30/14 Liraglutide [Victoza] 1.2 mg SC DAILY 03/30/14 Tamsulosin HCl 0.4 mg PO DAILY 03/30/14 Acetaminophen [Tylenol] 500 mg PO DAILY 06/30/16 Clopidogrel Bisulfate [Plavix] 75 mg PO QD 06/30/16 Docusate Sodium [Colace Cap] 100 mg PO BID 06/30/16 Gabapentin 900 mg PO BEDTIME 06/30/16 Pseudoephedrine HCl [Pseudoephedrine HCl ER] 180 mg PO BID 06/30/16 Allopurinol [Zyloprim] 100 mg PO DAILY 01/26/17 Wsgjukljbi-Kzdidtcvi-Sfoxelsnr [Exforge Hct 5-160-25 mg] 1 tab PO BID 01/26/17 Insulin Regular (Human) [Humulin R] 0 unit IJ QID PRN 01/26/17 Linaclotide [Linzess] 145 mcg PO DAILY PRN 01/26/17 Pantoprazole Tablet [Protonix] 40 mg PO BID #60 tab 01/26/17 Pantoprazole Tablet [Protonix] 40 mg PO BID #60 tab 01/26/17 Review of Systems - Review of Systems Constitutional: States: no symptoms reported. Denies: chills, diaphoresis, fever, malaise Respiratory: States: short of breath. Denies: cough Cardiology: States: chest pain - Resolved prior to arrival @ ER, syncope. Denies: palpitations Gastrointestinal/Abdominal: States: no symptoms reported Musculoskeletal: States: back pain Skin: States: no symptoms reported Neurological: States: no symptoms reported All other Systems: No Change from Baseline Past Medical History (General) - Patient Medical History Hx Seizures: No Hx Stroke: No Hx Dementia: No Hx Asthma: No Hx of COPD: No Hx Cardiac Disorders: Yes - hypercholesterolemia; PVD; LA x 2 Hx Congestive Heart Failure: Yes Hx Pacemaker: No Hx Hypertension: Yes Hx Thyroid Disease: Yes Hx Diabetes: Yes Hx Gastroesophageal Reflux: No Hx Renal Disease: No Hx Cancer: No Hx of HIV: No Hx Hepatitis C: No Hx MRSA: No Surgical History: other - Vaccination History Hx Tetanus, Diphtheria Vaccination: Yes Hx Influenza Vaccination: No Hx Pneumococcal Vaccination: Yes - Social History Hx Tobacco Use: Yes Hx Chewing Tobacco Use: No Hx Alcohol Use: Yes Hx Substance Use: No Hx Substance Use Treatment: No Hx Depression: No Feels Threatened In Home Enviroment: No Feels Threatened In a Relationship: No Hx Physical Abuse: No Hx Emotional Abuse: No Hx Suspected Abuse: No Family Medical History - Family History Mother Family History: Unknown Living Status: Cause of : old age Father Family History: Unknown Living Status: Cause of : old age Physical Exam - Physical Exam General Appearance: Alert, Obvious distress - Visibly SOB, Well Developed, Well Groomed, Well Hydrated, Well Nourished Neck: supple, normal inspection Respiratory: chest non-tender, decreased breath sounds - Throughout bases>apex Cardiovascular/Chest: regular rate, rhythm, no gallop, no murmur Extremity: normal inspection Neurologic: alert, normal mood/affect, oriented x 3 Skin Exam: normal color, warm/dry Comments: Vital Signs 02/09/17 22:40 Temperature 97.2 F L Pulse Rate [ 104 H monitor] Respiratory 16 Rate Blood Pressure 148/81 [Right Arm] O2 Sat by Pulse 85 L Oximetry Progress - Progress Progress: 02/09/17 23:55 Contacted [facility] for transfer but no Tele beds available. Wants to go to [facility]. 02/10/17 00:18 Started On IV Rocephin and Zithromax - Results/Orders Results/Orders: Laboratory Tests 02/09/17 02/09/17 02/09/17 22:15 22:15 22:15 WBC 10.2 RBC 4.39 L Hgb 12.8 L Hct 37.4 L MCV 85.2 MCH 29.1 MCHC 34.2 RDW 14.7 H Plt Count 265 MPV 8.3 Absolute Neuts (auto) 5.90 Absolute Lymphs (auto) 3.10 Absolute Monos (auto) 0.80 Absolute Eos (auto) 0.40 Absolute Basos (auto) 0.10 Neutrophils % 57.3 Lymphocytes % 30.2 Monocytes % 7.5 Eosinophils % 3.9 Basophils % 1.1 D-Dimer, Quantitative 515 H* Sodium 136 Potassium 4.3 Chloride 104 Carbon Dioxide 23 Anion Gap 13.3 BUN 38 H Creatinine 1.92 H BUN/Creatinine Ratio 19.8 Random Glucose 364 H Serum Osmolality 295.8 H Calcium 8.5 Total Bilirubin 0.5 AST 17 ALT 14 Alkaline Phosphatase 71 Creatine Kinase 185 H CK-MB (CK-2) 7.6 H* CK-MB (CK-2) % 4.11 H Troponin I 0.14 H* B-Natriuretic Peptide 440.0 H* Serum Total Protein 7.8 Albumin 4.3 Globulin 3.5 Albumin/Globulin Ratio 1.2 - EKG/XRAY/CT EKG: Sinus, nonspecific ST T wave Chg, Unchanged from - 06/29/16 Comments: Rate 93bpm XRAY: chest - patchy bilateral lower lobe opacities per Radiologist Departure - Departure Clinical Impression: Non-STEMI (non-ST elevated myocardial infarction), Shortness of breath Time of Disposition: 00:17 Disposition: Transfer to Hospital Condition: Poor Departure Forms: ED Discharge - Pt. Copy, Patient Portal Self Enrollment Referrals: Matt Branch III, MD [Primary Care Provider] - 1-2 Weeks Home Medications: Ambulatory Orders Aspirin [Baby Aspirin] 81 mg PO BEDTIME 03/30/14 Carvedilol 3.125 mg PO BID 03/30/14 Furosemide [Lasix] 40 mg PO DAILY 03/30/14 Gabapentin [Neurontin] 300 mg PO DAILY 03/30/14 Liraglutide [Victoza] 1.2 mg SC DAILY 03/30/14 Tamsulosin HCl 0.4 mg PO DAILY 03/30/14 Acetaminophen [Tylenol] 500 mg PO DAILY 06/30/16 Clopidogrel Bisulfate [Plavix] 75 mg PO QD 06/30/16 Docusate Sodium [Colace Cap] 100 mg PO BID 06/30/16 Gabapentin 900 mg PO BEDTIME 06/30/16 Pseudoephedrine HCl [Pseudoephedrine HCl ER] 180 mg PO BID 06/30/16 Allopurinol [Zyloprim] 100 mg PO DAILY 01/26/17 Pvklriadza-Khljmzjyo-Qitaboeow [Exforge Hct 5-160-25 mg] 1 tab PO BID 01/26/17 Insulin Regular (Human) [Humulin R] 0 unit IJ QID PRN 01/26/17 Linaclotide [Linzess] 145 mcg PO DAILY PRN 01/26/17 Pantoprazole Tablet [Protonix] 40 mg PO BID #60 tab 01/26/17 Pantoprazole Tablet [Protonix] 40 mg PO BID #60 tab 01/26/17 Transfer to Outside Facility - Transfer Information Accepting Provider:: Dr. Chung Accepting Facility: [facility] Reason for Transfer: required specialist not available
[2017-02-09] MEDS ORDERED: ASPIRIN TABLET 325 MG TAB ONE (23:54)
[2017-02-09] MEDS ORDERED: ASPIRIN TABLET 325 MG TAB PO ONE (23:56)
[2017-02-10] MEDS ORDERED: cefTRIAXone SODIUM 1 GM in SODIUM CHL 0.9% 50ML MIN-BAG+ 50 ML IVPB ONE (00:17)
[2017-02-10] MEDS ORDERED: AZITHROMYCIN IV 500 MG in SODIUM CHLORIDE 0.9% 250ML 250 ML IVPB ONE (00:17)
[2017-02-10] MEDS ORDERED: cefTRIAXone SODIUM 1 GM VIAL ONE (00:23)
[2017-02-10] MEDS ORDERED: AZITHROMYCIN IV 500 MG VIAL IVPB ONE (00:23)
[2017-02-10] MEDS ORDERED: SODIUM CHL 0.9% 50ML MIN-BAG+ 50 ML IVPB ONE (00:23)
[2017-02-10] MEDS ORDERED: SODIUM CHLORIDE 0.9% 250ML 250 ML ONE (00:24)
[2017-02-10 01:05] VITALS: BP 159/74; O2SAT 94
== END 2017-02-10 00:42 | disposition short-term general hospital (02) ==
LOC: ER 22:36
DX: I21.4 Non-ST elevation (NSTEMI) myocardial infarction (principal); I11.0 Hypertensive heart disease with heart failure; I50.9 Heart failure, unspecified; E11.9 Type 2 diabetes mellitus without complications; I25.2 Old myocardial infarction; E78.00 Pure hypercholesterolemia, unspecified; Z87.891 Personal history of nicotine dependence; Z79.82 Long term (current) use of aspirin; Z79.899 Other long term (current) drug therapy; Z79.4 Long term (current) use of insulin
CPT/HCPCS: 36415; 71010; 80053; 82550; 82553; 83880; 84484; 85025; 85379; 93005; 94640; J0456; J0696; J7050; J7611

== ENCOUNTER → 2017-03-18 | Outpatient (CLI) | payer MEDICARE, OTHER | END | disposition home or self-care (01) | LOC: GMAL 10:51 | PROVIDERS: ATTEND Family Medicine | DX: D53.9 Nutritional anemia, unspecified (principal); E55.9 Vitamin D deficiency, unspecified ==

== ENCOUNTER 2017-04-06 18:28 | Emergency (ER) | payer MEDICARE, OTHER ==
--- NOTE | 2017-04-06 19:17 | ED.PDOC ---
History of Present Illness - General Chief Complaint: Abdominal Pain Stated Complaint: abdominal pain Time Seen by Provider: 04/06/17 18:33 Information Source: patient, RN notes reviewed, Vital Signs reviewed Exam Limitations: no limitations - History of Present Illness Initial Comments: Patient presents to ER with c/o epigastric pressure that started @ 09:00 today. + nausea. No improvement with Nitro, Rolaids, Zantac or his usual GI medications. Last bowel movement was yesterday, reports his normal pattern is once every 2 weeks. No fever or chills. Denies chest pain but reports even if his troponin is elevated he refuses to be transferred and just wants to be treated here. Abdominal Pain Onset Location: epigastric Pain Radiation: no radiation Quality: moderate - pressure Timing/Duration: 7-24 hours Improving Factors: nothing Worsening Factors: nothing Associated Symptoms: heartburn, nausea/vomiting Review of Systems - Review of Systems Constitutional: States: no symptoms reported. Denies: chills, fever, malaise Respiratory: States: no symptoms reported. Denies: short of breath Cardiology: States: no symptoms reported. Denies: chest pain, palpitations Gastrointestinal/Abdominal: States: see HPI Genitourinary: States: no symptoms reported Musculoskeletal: States: no symptoms reported Skin: States: no symptoms reported Neurological: States: no symptoms reported Endocrine: States: no symptoms reported All other Systems: No Change from Baseline Past Medical History (General) - Patient Medical History Hx Seizures: No Hx Stroke: No Hx Dementia: No Hx Asthma: No Hx of COPD: No Hx Cardiac Disorders: Yes - hypercholesterolemia; PVD; CA x 2 Hx Congestive Heart Failure: Yes Hx Pacemaker: No Hx Hypertension: Yes Hx Thyroid Disease: Yes Hx Diabetes: Yes Hx Gastroesophageal Reflux: No Hx Renal Disease: No Hx Cancer: No Hx of HIV: No Hx Hepatitis C: No Hx MRSA: No Surgical History: other - Vaccination History Hx Tetanus, Diphtheria Vaccination: Yes Hx Influenza Vaccination: No Hx Pneumococcal Vaccination: Yes - Social History Hx Tobacco Use: Yes Hx Chewing Tobacco Use: No Hx Alcohol Use: No Hx Substance Use: No Hx Substance Use Treatment: No Hx Depression: No Hx Physical Abuse: No Hx Emotional Abuse: No Hx Suspected Abuse: No - Activities of Daily Living Hospice Agency (if applicable):: None Family Medical History - Family History Mother Family History: Unknown Living Status: Cause of : old age Father Family History: Unknown Living Status: Cause of : old age Physical Exam - Physical Exam General Appearance: Alert, Comfortable, No apparent distress, Well Developed, Well Groomed, Well Hydrated, Well Nourished Neck: non-tender, full range of motion, supple, normal inspection Respiratory: chest non-tender, lungs clear, normal breath sounds, no respiratory distress, no accessory muscle use Cardiovascular/Chest: regular rate, rhythm, no gallop, no JVD, no murmur Gastrointestinal/Abdominal: normal bowel sounds, soft, no organomegaly, no pulsatile mass, distended - mild, tenderness - Mild epigastric and RUQ w/o guarding or rebound Extremity: normal range of motion, normal inspection Neurologic: alert, normal mood/affect, oriented x 3 Skin Exam: normal color, warm/dry Comments: Vital Signs 04/06/17 04/06/17 18:35 18:51 Temperature 97.0 F L Pulse Rate [ 65 65 pulse ox] Respiratory 20 Rate Blood Pressure 182/80 [Left Arm] O2 Sat by Pulse 95 Oximetry Progress - Results/Orders Results/Orders: 04/06/17 19:07 IV Care:Saline Lock per Protoc QSHIFT Telemetry Q4H 04/06/17 19:15 AMYLASE Stat CARDIAC ENZYME GROUP Stat COMPLETE METABOLIC PROFILE Stat LIPASE Stat EKG STAT 04/06/17 20:30 Insulin, Reg.(Human) [HumuLIN R] 250 units Sodium Chl 0.9% 250Ml ([place]) [NS 250ml (MERCEDEZ)] 247.5 ml IVPB Q12H 04/06/17 21:39 GLUCOSE,RANDOM Stat Laboratory Results - last 24 hr 04/06/17 04/06/17 04/06/17 19:15 19:15 19:15 WBC 11.6 H RBC 4.24 L Hgb 12.2 L Hct 36.6 L MCV 86.3 MCH 28.7 MCHC 33.4 RDW 13.5 Plt Count 169 MPV 9.0 Absolute Neuts (auto) 10.60 H Absolute Lymphs (auto) 0.30 L Absolute Monos (auto) 0.50 Absolute Eos (auto) 0.00 Absolute Basos (auto) 0.10 Neutrophils % 91.8 H Lymphocytes % 2.8 L Monocytes % 4.6 Eosinophils % 0.2 L Basophils % 0.6 Sodium 130 L Potassium 4.8 Chloride 93 L Carbon Dioxide 26 Anion Gap 15.8 BUN 51 H Creatinine 2.16 H BUN/Creatinine Ratio 23.6 H POC Glucose Random Glucose 749 H* Serum Osmolality Not Reportable Calcium 9.3 Total Bilirubin 2.8 H* AST 763 H ALT 414 H Alkaline Phosphatase 234 H Creatine Kinase 148 CK-MB (CK-2) 6.0 H* Troponin I 0.13 H* Serum Total Protein 7.7 Albumin 4.1 Globulin 3.6 H Albumin/Globulin Ratio 1.1 Amylase 3403 H* Lipase 5481 H Serum Ketones Negative 04/06/17 21:25 WBC RBC Hgb Hct MCV MCH MCHC RDW Plt Count MPV Absolute Neuts (auto) Absolute Lymphs (auto) Absolute Monos (auto) Absolute Eos (auto) Absolute Basos (auto) Neutrophils % Lymphocytes % Monocytes % Eosinophils % Basophils % Sodium Potassium Chloride Carbon Dioxide Anion Gap BUN Creatinine BUN/Creatinine Ratio POC Glucose > 400 H* Random Glucose Serum Osmolality Calcium Total Bilirubin AST ALT Alkaline Phosphatase Creatine Kinase CK-MB (CK-2) Troponin I Serum Total Protein Albumin Globulin Albumin/Globulin Ratio Amylase Lipase Serum Ketones - EKG/XRAY/CT EKG: Sinus, LVH, no ST T wave changes Comments: Rate [address] Ordered: Yes - Cholelithiasis vs GB wall calcification - stable, Diverticulosis, & CT Interpretation Call Back: No - R renal cyst 5.5cm per Rad Departure - Departure Clinical Impression: Acute hepatitis, Hyperglycemia without ketosis, Renal insufficiency, Dehydration, Elevated troponin I level Pancreatitis Qualifiers: Chronicity: acute Pancreatitis type: unspecified pancreatitis type Acute pancreatitis complication: unspecified Qualified Code(s): K85.90 - Acute pancreatitis without necrosis or infection, unspecified Cholelithiasis Qualifiers: Cholelithiasis location: gallbladder Cholecystitis presence: without cholecystitis Biliary obstruction: without biliary obstruction Qualified Code(s) : K80.20 - Calculus of gallbladder without cholecystitis without obstruction Time of Disposition: 21:58 Disposition: Transfer to Hospital Condition: Poor Departure Forms: ED Discharge - Pt. Copy, Patient Portal Self Enrollment Instructions: DI for Abdominal Pain-Adult Referrals: Matt Branch III, MD [Primary Care Provider] - 1-2 Weeks Home Medications: Ambulatory Orders Aspirin [Baby Aspirin] 81 mg PO BEDTIME 03/30/14 Carvedilol 3.125 mg PO BID 03/30/14 Furosemide [Lasix] 40 mg PO DAILY 03/30/14 Gabapentin [Neurontin] 300 mg PO DAILY 03/30/14 Liraglutide [Victoza] 1.2 mg SC DAILY 03/30/14 Tamsulosin HCl 0.4 mg PO DAILY 03/30/14 Acetaminophen [Tylenol] 500 mg PO DAILY 06/30/16 Clopidogrel Bisulfate [Plavix] 75 mg PO QD 06/30/16 Docusate Sodium [Colace Cap] 100 mg PO BID 06/30/16 Gabapentin 900 mg PO BEDTIME 06/30/16 Pseudoephedrine HCl [Pseudoephedrine HCl ER] 180 mg PO BID 06/30/16 Allopurinol [Zyloprim] 100 mg PO DAILY 01/26/17 [id number]-[id number] [Exforge Hct 5-160-25 mg] 1 tab PO BID 01/26/17 Insulin Regular (Human) [Humulin R] 0 unit IJ QID PRN 01/26/17 Linaclotide [Linzess] 145 mcg PO DAILY PRN 01/26/17 Pantoprazole Tablet [Protonix] 40 mg PO BID #60 tab 01/26/17 Pantoprazole Tablet [Protonix] 40 mg PO BID #60 tab 01/26/17 Transfer to Outside Facility - Transfer Information Accepting Provider:: Dr. Samaniego Accepting Facility: [facility] Reason for Transfer: required specialist not available
[2017-04-06] MEDS ORDERED: SODIUM CHLORIDE 0.9% 1000ML 1,000 ML ONE (20:11)
[2017-04-06] MEDS ORDERED: SODIUM CHLORIDE 0.9% 1000ML 1,000 ML IVS ONE (20:14)
[2017-04-06 20:21] VITALS: TEMP 99.6
[2017-04-06] MEDS ORDERED: INSULIN, REG.(HUMAN) 100 U/ML VIAL ONE ×2 (20:21→20:30)
[2017-04-06] MEDS ORDERED: SODIUM CHL 0.9% 250ML (AVIVA) 250 ML IVPB ONE (20:21)
[2017-04-06] MEDS ORDERED: INSULIN, REG.(HUMAN) 250 UNITS in SODIUM CHL 0.9% 250ML (AVIVA) 247.5 ML IVPB SCH ×2 (20:30)
--- NOTE | 2017-04-06 21:33 | CT ---
EXAM: Abdoment/Pelvis w/o Contrast CLINICAL INDICATION: 71-year-old male with epigastric, RIGHT upper quadrant pain and pancreatitis. COMPARISON: 04/01/2016 CT abdomen and pelvis. EXAMINATION: CT of the abdomen and pelvis was performed without administration of contrast. Oral contrast was not administered. Multiplanar reformatted images were provided. This exam was performed according to our departmental dose optimization program which includes use of automated exposure control, adjustment of the mA and/or kV according to patient size and/or use of iterative reconstruction technique. FINDINGS: Evaluation of solid organ pathology is limited secondary to lack of intravenous contrast. Examination findings are further limited secondary to motion artifact and streak artifact through the upper abdomen secondary to adjacent patient arm positioning. Within these limitations, the following observations are made. Chest: Evaluation through the lung bases reveals no focal opacity, pleural effusion or pneumothorax. Heart size is within normal limits. No pericardial effusion. Abdomen and pelvis: The liver, gallbladder, pancreas, spleen, bilateral kidneys and bilateral adrenal glands are within normal limits. Large RIGHT renal cystic type structure compatible with simple renal cyst with Hounsfield units measuring approximately nine and measuring 5.5 cm, (series 2, image 40). Focus of dense calcification present at the level of the distal gallbladder stable in comparison to examination dated 03/22/2016 may represent gallbladder wall calcification or calculus. The vessels reveal atherosclerotic calcification otherwise patent and normal in caliber. No abdominopelvic lymph nodes are noted to be pathologically enlarged by CT measurement criteria. The bowel is within normal limits without abnormal bowel wall thickness or bowel dilation. Diverticular disease without findings to suggest diverticulitis. No free air. No free abdominopelvic fluid collections. The appendix is within normal limits. The osseous structures reveal degenerative change. Postoperative change of the L5-S1 level with multilevel laminectomy and bilateral pedicular screws and stabilization rods. L5-S1 disk hardware. IMPRESSION: 1. No specific acute intra-abdominal findings are noted to suggest etiology of the patient's abdominal pain. 2. Cholelithiasis versus gallbladder wall calcification. 3. Diverticular disease without findings to suggest diverticulitis. Electronically signed by: Pura Aguilar MD 04/06/2017 9:32 PM [facility]
[2017-04-06 23:08] VITALS: BP 132/53; O2SAT 95
== END 2017-04-06 23:00 | disposition short-term general hospital (02) ==
LOC: ER 18:28
DX: K85.90 Acute pancreatitis without necrosis or infection, unspecified (principal); K80.20 Calculus of gallbladder without cholecystitis without obstruction; B17.9 Acute viral hepatitis, unspecified; E86.0 Dehydration; R79.89 Other specified abnormal findings of blood chemistry; E11.65 Type 2 diabetes mellitus with hyperglycemia; N28.9 Disorder of kidney and ureter, unspecified; E78.00 Pure hypercholesterolemia, unspecified; I25.2 Old myocardial infarction; I73.9 Peripheral vascular disease, unspecified; I50.9 Heart failure, unspecified; I11.0 Hypertensive heart disease with heart failure; E07.9 Disorder of thyroid, unspecified; Z87.891 Personal history of nicotine dependence; Z79.4 Long term (current) use of insulin; Z79.82 Long term (current) use of aspirin; Z79.899 Other long term (current) drug therapy
CPT/HCPCS: 36415; 36416; 74176; 80053; 82009; 82150; 82550; 82553; 82947; 82948; 83690; 84484; 85025; 93005; J7030